=== PATIENT | female | born 1935 | race Caucasian/White ===

== ENCOUNTER → 2016-03-23 | Outpatient (CLI) | payer MEDICARE, OTHER | LOC: RAD 08:21 | PROVIDERS: ATTEND Nurse Practitioner Adult Health | DX: R91.8 Other nonspecific abnormal finding of lung field (principal) | CPT/HCPCS: 71250 ==

== ENCOUNTER → 2017-05-03 | Outpatient (CLI) | payer MEDICARE, OTHER ==
--- NOTE | 2017-05-03 12:04 | RADIOLOGY REPORT (SQ) ---
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 Selected additional c olor/power Doppler images recorded. All images stored to PACS. LIMITATIONS: None. FINDINGS: Overall thyroid gland is normal in size. Right lobe thyroid 4.7 x 3.1 x 2.6 cm in size. There is a solid nodule in the right lower pole thyro id with internal color flow. This nodule measures 3.6 x 2.7 cm in size. Elsewhere in the right lobe thyroid there are multiple thyroid cysts, the largest is 8 mm in size in the posterior right mid gland. Left lobe thyroid 4.1 x 1.6 x 1.4 cm in size with multiple small cysts less than 1 cm in size. There is the partially calcified nodule in the isthmus, 7 mm in diameter. IMPRESSION: Solid nodule in the right lower pole thyroid and midline thyroid isthmus. Otherwise, multiple bilateral thyroid cysts are present. TECHNICAL DOCUMENTATION: JOB ID: [id number] [employer]- All Rights Reserved Reading location - IP/workstation name: [email or web address]
--- NOTE | 2017-05-03 16:40 | RADIOLOGY REPORT (SQ) ---
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 TECHNIQUE: CT scan performed of the chest without intravenous contrast. Images reviewed with lung, soft tissue and bone windows. Reconstructed coronal and sagittal MPR images reviewed. All images st ored on PACS. All CT scanners at this facility use dose modulation, iterative reconstruction, and/or weight based d osing when appropriate to reduce radiation dose to as low as reasonably achievable (ALARA). [facility]: Dose Right [facility]: CareDose [facility]: Dose Right [facility]: Teradose 4D [facility]: Smart [employer] (powering [employer]) RADIATION DOSE: CT Rad equipment meets quality standard of care and radiation dose reduction techniq ues were employed. CTDIvol: 8.6 mGy. DLP: 335 mGy-cm. mGy. LIMITATIONS: No technical limitations. FINDINGS: LUNGS AND PLEURA: Multiple previously documented pulmonary nodules are unchanged in size a nd appearance. Majority of these nodules measure between 2 and 4 mm. The largest in the right lung is unchanged, measures 7.8 mm (axial series 4, image 43) and is associated with linear scarring. Lar gest in the left lung, adjacent to the cardiac border, measures 6.4 mm, essentially unchanged (axial series 4, image 61). No new nodules or masses. No focal infiltrates. No pleural effusion, pleural thickening, or pleural calcification. HILAR AND MEDIASTINAL STRUCTURES: No identified masses or abnormal nodes. No obvious aneurysm. HEART AND VASCULAR STRUCTURES: No aneurysm. No pericardial effusion. UPPER ABDOMEN: No significant findings. Limited exam. THYROID AND OTHER SOFT TISSUES: Asymmetric enlargement of the right lobe of the thyroid, unchanged. No adenopathy. BONES: No significant finding. HARDWARE: None in the chest. OTHER: No other significant findings. IMPRESSION: STABLE CT OF THE CHEST. MULTIPLE PULMONARY NODULES ARE STABLE AND UNCHANGED. NO PROGRE SSION AND NO NEW NODULES OR MASSES. COMMENT: FLEISCHNER CRITERIA FOR FOLLOW-UP OF PULMONARY NODULES Incidentally detected new nodules in persons 35 or older. HIGH RISK: History of smoking or other known risk factors. 6-8mm multiple solid nodules: LOW RISK: CT 3-6 mo; then consider CT 18-24 mo. HIGH RISK: CT 3-6 mo; t hen CT 18-24 mo. TECHNICAL DOCUMENTATION: JOB ID: [id number] Quality ID # [id number]: Final reports with documentation of one or more dose reduction techniques (e.g., Au tomated exposure control, adjustment of the mA and/or kV according to patient size, use of iterative reconstruction technique) 2010 [employer]- All Rights Reserved Reading location - IP/workstation name: [email or web address]
== END ==
LOC: RAD 10:18
PROVIDERS: ATTEND Physician Assistant
DX: E01.0 Iodine-deficiency related diffuse (endemic) goiter (principal); R91.8 Other nonspecific abnormal finding of lung field
CPT/HCPCS: 71250; 76536

== ENCOUNTER → 2017-05-27 | Day surgery (SDC) | payer MEDICARE, OTHER ==
[~2017-05-27] MED LIST: LIDOCAINE 1% INJ-PF (10 MG/ML) 30 ML SDV ONE
--- NOTE | 2017-05-27 17:41 | RADIOLOGY REPORT (SQ) ---
EXAM DESCRIPTION: U/S BIOPSY THYROID COMPLETED DATE/TIME: 05/27/2017 4:26 pm REASON FOR STUDY: RIGHT THYROID NODULE (E04.2) E04.2 NONTOXIC MULTINODULAR GOITER COMPARISON: None. TECHNIQUE: The procedure was discussed with the patient and written informed consent obtained. A ti meout was performed to confirm the procedure and patient's identity. The skin of the neck was preppe d and draped in sterile fashion and 1 mL of 1% lidocaine administered for local anesthesia. Under so nographic guidance, fine needle aspiration biopsy was performed of the mass in the right lobe of the thyroid. Three separate aspirations were performed. Hemostasis was obtained with direct manual compression. There were no immediate complications. LIMITATIONS: None. FINDINGS: PATHOLOGY: Pending. IMPRESSION: ULTRASOUND-GUIDED BIOPSY PERFORMED OF A MASS IN THE RIGHT LOBE LOBE OF THE THYROID. PAT OLGAGY PENDING AT THE TIME OF DICTATION. COMMENT: Patient medication list reviewed: Yes- Quality ID# [id number]:Eligible professional attests to doc umenting in the medical record they obtained, updated, or reviewed the patient's current medications. TECHNICAL DOCUMENTATION: JOB ID: [id number] [employer]- All Rights Reserved Reading location - IP/workstation name: [facility]-[email or web address]
== END ==
LOC: RAD 13:58
PROVIDERS: ATTEND Otolaryngology
DX: E04.2 Nontoxic multinodular goiter (principal)
CPT/HCPCS: 88173 ×2; 60100; J3490

== ENCOUNTER → 2017-07-10 | Day surgery (SDC) | payer MEDICARE, OTHER ==
--- NOTE | 2017-07-10 17:57 | RADIOLOGY REPORT (SQ) ---
EXAM DESCRIPTION: U/S BIOPSY THYROID COMPLETED DATE/TIME: 07/10/2017 3:02 pm REASON FOR STUDY: GOITER (E04.2) E04.2 NONTOXIC MULTINODULAR GOITER COMPARISON: Thyroid biopsy 05/27/2017 Thyroid ultrasound 05/03/2017 CT chest 05/03/2017 TECHNIQUE: The procedure was discussed with the patient and written informed consent obtained. A ti meout was performed to confirm the procedure and patient's identity. The skin of the neck was preppe d and draped in sterile fashion and 0.5 mL of 1% lidocaine administered for local anesthesia. Under sonographic guidance, fine needle aspiration biopsy was performed of the 7 mm mass in the isthmus of the thyroid. 5 separate aspirations were performed. Specimens were received by Yue from cytology. Hemostasis was obtained with direct manual compression. There were no immediate complications. LIMITATIONS: None. FINDINGS: PATHOLOGY: Pending. IMPRESSION: ULTRASOUND-GUIDED BIOPSY PERFORMED OF A 7 mm NODULE IN THE ISTHMUS OF THE THYROID. PATH OLOGY PENDING AT THE TIME OF DICTATION. COMMENT: Patient medication list reviewed: Yes- Quality ID# [id number]:Eligible professional attests to doc umenting in the medical record they obtained, updated, or reviewed the patient's current medications. TECHNICAL DOCUMENTATION: JOB ID: [id number] [employer]- All Rights Reserved Reading location - IP/workstation name: [email or web address]
== END ==
LOC: RAD 13:40
PROVIDERS: ATTEND Otolaryngology
DX: E04.2 Nontoxic multinodular goiter (principal)
CPT/HCPCS: 88173 ×2; 60100; J3490

== ENCOUNTER → 2017-12-10 | Outpatient (CLI) | payer MEDICARE, OTHER ==
[2017-12-11 12:38] LABS: ANTICHROMATIN AB <0.2 AI (0.0-0.9); CENTROMERE B AB <0.2 AI (0.0-0.9); JO-1 ANTIBODY (ANACOMP) <0.2 AI (0.0-0.9); SJOGREN'S ANTI-SS-B AB <0.2 AI (0.0-0.9); SJOGREN'S SS-A ANTIBODY <0.2 AI (0.0-0.9)
[2017-12-11 12:40] LABS: DNA DOUBLE STRAND ANTIBODY ANA <1 IU/mL (0-9)
[2017-12-11 17:37] LABS: CYTOPLASMIC (C-ANCA) <1:20 titer (Neg:<1:20)
[2017-12-12 07:46] LABS: ATYPICAL PANCA <1:20 titer (Neg:<1:20); PERINUCLEAR (P-ANCA) <1:20 titer (Neg:<1:20)
== END ==
LOC: OD 09:49
PROVIDERS: ATTEND Physician Assistant
DX: R94.2 Abnormal results of pulmonary function studies (principal)
CPT/HCPCS: 36415; 86021; 86225; 86235; 86430

== ENCOUNTER 2018-01-24 13:56 | Emergency (ER) | payer MEDICARE, OTHER ==
--- NOTE | 2018-01-24 14:24 | ER Document Report ---
ED Medical Screen (RME) - General Chief Complaint: Fall Stated Complaint: FALL/LEFT SHOULDER PAIN Time Seen by Provider: 01/24/18 14:24 Notes: 82-year-old brought in by ambulance after fall at [employer]. Tripped over a parking bumper. Landed on left side. Hit her head. Has bleeding present on the left sikh. No LOC. Complaining of neck pain, head pain and left shoulder and arm pain. I have greeted and performed a rapid initial assessment of this patient. A comprehensive ED assessment and evaluation of the patient, analysis of test results and completion of the medical decision making process will be conducted by additional ED providers. TRAVEL OUTSIDE OF THE [place] IN LAST 30 DAYS: No - Related Data Allergies/Adverse Reactions: ibuprofen Allergy (Verified 01/24/18 13:57) rash iodine Allergy (Verified 01/24/18 13:57) rash Past Medical History - Past Medical History Cardiac Medical History: Reports: Hx Hypercholesterolemia, Hx Hypertension Denies: Hx Coronary Artery Disease, Hx Heart Attack Pulmonary Medical History: Denies: Hx Asthma, Hx Bronchitis, Hx COPD, Hx Pneumonia Neurological Medical History: Denies: Hx Cerebrovascular Accident, Hx Seizures GI Medical History: Reports: Hx Diverticulitis, Hx Colonoscopy Musculoskeltal Medical History: Reports Hx Arthritis Past Surgical History: Reports: Hx Hysterectomy, Hx Orthopedic Surgery - right shoulder and knee - Immunizations Hx Diphtheria, Pertussis, Tetanus Vaccination: Yes History of Influenza Vaccine for 12/2016 - 05/2017 Season: Yes Influenza Administration Date for 12/2016 - 05/2017 Season: 12/09/16 Physical Exam - Vital signs Vitals: Temp Pulse Resp BP Pulse Ox 97.4 F 72 24 H 93/59 L 97 01/24/18 14:10 01/24/18 14:10 01/24/18 14:10 01/24/18 14:10 01/24/18 14:10 Course - Vital Signs Vital signs: Temp Pulse Resp BP Pulse Ox 97.4 F 72 24 H 93/59 L 97 01/24/18 14:10 01/24/18 14:10 01/24/18 14:10 01/24/18 14:10 01/24/18 14:10 Doctor's Discharge - Discharge Referrals: MITCH CAVAZOS PA-C [Primary Care Provider] - Follow up as needed
[2018-01-24] MEDS ORDERED: FENTANYL CITRATE INJ/PF 100 MCG/2 ML AMPUL IV ONE ×2 (14:35→15:30)
[2018-01-24 15:04] LABS: ABSOLUTE BASOPHILS # (AUTO) 0.1 10^3/uL (0.0-0.2); ABSOLUTE EOSINOPHILS # (AUTO) 0.2 10^3/uL (0.0-0.6); ABSOLUTE LYMPHOCYTES (AUTO) 2.7 10^3/uL (0.5-4.7); ABSOLUTE MONOCYTES (AUTO) 0.9 10^3/uL (0.1-1.4); ABSOLUTE NEUT (AUTO) 5.6 10^3/uL (1.7-8.2); BASOPHILS % (AUTO) 0.6 % (0-2); HEMATOCRIT 41.4 % (36.0-47.0); HEMOGLOBIN 14.6 g/dL (12.0-15.5); LYMPHOCYTES % (AUTO) 28.7 % (13-45); MEAN CORPUSCULAR HEMOGLOBIN 32.8 pg (27.0-33.4); MEAN CORPUSCULAR HGB CONC 35.2 g/dL (32.0-36.0); MEAN CORPUSCULAR VOLUME 93 fl (80-97); MONOCYTES % (AUTO) 9.8 % (3-13); PLATELET COUNT 254 10^3/uL (150-450); RED BLOOD COUNT 4.45 10^6/uL (3.72-5.28); RED CELL DISTRIBUTION WIDTH 12.9 % (11.5-14.0); SEGMENTED NEUTROPHILS % (AUTO) 58.9 % (42-78); TOTAL CELLS COUNTED % (AUTO) 100 %; WHITE BLOOD COUNT 9.5 10^3/uL (4.0-10.5)
[2018-01-24 15:13] LABS: INTERNATIONAL RATION (INR) 0.96; PROTHROMBIN TIME 13.3 SEC (11.4-15.4)
[2018-01-24 15:14] LABS: PARTIAL THROMBOPLASTIN TIME 29.2 SEC (23.5-35.8)
[2018-01-24 15:19] LABS: ALANINE AMINOTRANSFERASE 34 U/L (9-52); ALKALINE PHOSPHATASE 59 U/L (38-126); ANION GAP 14 (5-19); ASPARTATE AMINO TRANSFERASE 42 U/L (14-36); BILIRUBIN,DIRECT 0.3 mg/dL (0.0-0.4); BILIRUBIN,TOTAL 0.7 mg/dL (0.2-1.3); BLOOD UREA NITROGEN 17 mg/dL (7-20); CARBON DIOXIDE 24 mmol/L (22-30); CHLORIDE 101 mmol/L (98-107); GLUCOSE 189 mg/dL (75-110); POTASSIUM 4.2 mmol/L (3.6-5.0); SODIUM 139.2 mmol/L (137-145); TOTAL PROTEIN 6.8 g/dL (6.3-8.2)
--- NOTE | 2018-01-24 15:23 | RADIOLOGY REPORT (SQ) ---
EXAM DESCRIPTION: CT HEAD WITHOUT COMPLETED DATE/TIME: 01/24/2018 3:05 pm REASON FOR STUDY: fall, pain, head injury COMPARISON: None. TECHNIQUE: Axial images acquired through the brain without intravenous contrast. Images reviewed wi th bone, brain and subdural windows. Additional sagittal and coronal reconstructions were generated. Images stored on PACS. All CT scanners at this facility use dose modulation, iterative reconstruction, and/or weight based d osing when appropriate to reduce radiation dose to as low as reasonably achievable (ALARA). [facility]: Dose Right [facility]: CareDose [facility]: Dose Right [facility]: Teradose 4D [facility]: [employer] RADIATION DOSE: CT Rad equipment meets quality standard of care and radiation dose reduction techniq ues were employed. CTDIvol: 53.2 mGy. DLP: 1044 mGy-cm. mGy. LIMITATIONS: None. FINDINGS: VENTRICLES: Normal size and contour. CEREBRUM: No masses. No hemorrhage. No midline shift. No evidence for acute infarction. Normal gra y/white matter differentiation. No areas of low density in the white matter. CEREBELLUM: No masses. No hemorrhage. No alteration of density. No evidence for acute infarction. EXTRAAXIAL SPACES: No fluid collections. No masses. ORBITS AND GLOBE: No intra- or extraconal masses. Normal contour of globe without masses. CALVARIUM: No fracture. PARANASAL SINUSES: No fluid or mucosal thickening. SOFT TISSUES: Left frontal scalp hematoma without underlying skull fracture or acute intracranial adrián nges OTHER: No other significant finding. IMPRESSION: Left frontal scalp hematoma without underlying skull fracture or acute intracranial spears ges EVIDENCE OF ACUTE STROKE: NO. COMMENT: Quality ID # 436: Final reports with documentation of one or more dose reduction techniques (e.g., Automated exposure control, adjustment of the mA and/or kV according to patient size, use of iterative reconstruction technique) TECHNICAL DOCUMENTATION: JOB ID: [id number] [employer]- All Rights Reserved Reading location - IP/workstation name: [email or web address]-[email or web address]
--- NOTE | 2018-01-24 15:27 | RADIOLOGY REPORT (SQ) ---
EXAM DESCRIPTION: CT CERVICAL SPINE WITHOUT COMPLETED DATE/TIME: 01/24/2018 3:05 pm REASON FOR STUDY: fall, pain fall, injury, neck pain COMPARISON: None. TECHNIQUE: Axial images acquired through the cervical spine without intravenous contrast. Images re viewed with lung, soft tissue and bone windows. Reconstructed coronal and sagittal MPR images review ed. Images stored on PACS. All CT scanners at this facility use dose modulation, iterative reconstruction, and/or weight based d osing when appropriate to reduce radiation dose to as low as reasonably achievable (ALARA). [facility]: Dose Right [facility]: CareDose [facility]: Dose Right [facility]: Teradose 4D [facility]: [employer] RADIATION DOSE: CT Rad equipment meets quality standard of care and radiation dose reduction techniq ues were employed. CTDIvol: 23.3 mGy. DLP: 442 mGy-cm. mGy. LIMITATIONS: None. FINDINGS: ALIGNMENT: Straightening of cervical lordosis MINERALIZATION: Normal. VERTEBRAL BODIES: No fractures or dislocation. DISCS: Craniocervical junction, C1-2, C2-3 are unremarkable. At C3-4, mild diffuse posterior disc bulging is present without central stenosis. Mild bilateral for aminal narrowing. At C4-5, mild central canal narrowing results from broad diffuse disc bulge and bony spurring. High- grade right, moderate left foraminal narrowing. At C5-6, mild central canal stenosis results from broad diffuse posterior disc bulge and bony spurrin g. High-grade bilateral foraminal narrowing is present. At C6-7, mild posterior disc bulging is present without central stenosis. Mild right, moderate left foraminal narrowing is present. C7-T1 is unremarkable. FACETS, LATERAL MASSES, POSTERIOR ELEMENTS: No fractures. No dislocation. No acute findings. HARDWARE: None in the spine. VISUALIZED RIBS: No fractures. LUNG APICES AND SOFT TISSUES: No significant or acute findings. OTHER: No other significant finding. IMPRESSION: Multilevel degenerative disc changes. No acute fracture or malalignment. TECHNICAL DOCUMENTATION: JOB ID: [id number] Quality ID # [id number]: Final reports with documentation of one or more dose reduction techniques (e.g., Au tomated exposure control, adjustment of the mA and/or kV according to patient size, use of iterative reconstruction technique) 2010 [employer]- All Rights Reserved Reading location - IP/workstation name: [email or web address]
--- NOTE | 2018-01-24 15:30 | RADIOLOGY REPORT (SQ) ---
EXAM DESCRIPTION: SHOULDER LEFT 2 OR MORE VIEWS COMPLETED DATE/TIME: 01/24/2018 3:11 pm REASON FOR STUDY: fall, pain COMPARISON: None. NUMBER OF VIEWS: Three views. TECHNIQUE: Internal rotation, external rotation, and Y view images acquired of the left shoulder. LIMITATIONS: None. FINDINGS: MINERALIZATION: Normal. BONES: No acute fracture or dislocation. No worrisome bone lesions. JOINTS: Anterior glenohumeral joint dislocation. Acromioclavicular joint intact. VISUALIZED LUNGS AND RIBS: No pneumothorax. No rib fracture. SOFT TISSUES: No radiopaque foreign body. OTHER: No other significant finding. IMPRESSION: Anterior glenohumeral joint dislocation. No gross acute fracture. TECHNICAL DOCUMENTATION: JOB ID: [id number] [employer]- All Rights Reserved Reading location - IP/workstation name: [email or web address]
[2018-01-24] MEDS ORDERED: ETOMIDATE INJ/PF 20 MG/10 ML SDV IV PRN (15:57)
[2018-01-24] MEDS ORDERED: LIDOCAINE 1% INJ (10 MG/ML) 10 ML MDV INJ ONE ×2 (17:26→17:29)
[2018-01-24] MEDS ORDERED: LIDOCAINE 1%/EPINEPHRINE INJ 20 ML VIAL ONE (17:28)
[2018-01-24] MEDS ORDERED: LIDOCAINE 1%/EPINEPHRINE INJ 20 ML VIAL INJ ONE ×2 (17:30→17:31)
--- NOTE | 2018-01-24 17:58 | ER Document Report ---
ED Fall - General Chief Complaint: Fall Stated Complaint: FALL/LEFT SHOULDER PAIN Time Seen by Provider: 01/24/18 14:24 Mode of Arrival: Medic Information source: Patient, Emergency Med Personnel Cannot obtain history due to: Uncooperative TRAVEL OUTSIDE OF THE [place] IN LAST 30 DAYS: No - HPI Patient complains to provider of: Shoulder pain Occurred: Other - 82-year-old female that presents after tripping over a barrier at the store falling on her left side hitting her head and shoulder without any loss of consciousness. She denies any other pain at this time. Rest of history is limited secondary to this patient's pain level. - Related data Allergies/Adverse Reactions: ibuprofen Allergy (Verified 01/24/18 13:57) rash iodine Allergy (Verified 01/24/18 13:57) rash Past Medical History - General Information source: Patient - Social History Smoking Status: Unknown if Ever Smoked Family History: Reviewed & Not Pertinent Patient has suicidal ideation: No Patient has homicidal ideation: No - Past Medical History Cardiac Medical History: Reports: Hx Hypercholesterolemia, Hx Hypertension Denies: Hx Coronary Artery Disease, Hx Heart Attack Pulmonary Medical History: Denies: Hx Asthma, Hx Bronchitis, Hx COPD, Hx Pneumonia Neurological Medical History: Denies: Hx Cerebrovascular Accident, Hx Seizures Renal/ Medical History: Denies: Hx Peritoneal Dialysis GI Medical History: Reports: Hx Diverticulitis, Hx Colonoscopy Musculoskeletal Medical History: Reports Hx Arthritis Past Surgical History: Reports: Hx Hysterectomy, Hx Orthopedic Surgery - right shoulder and knee - Immunizations Hx Diphtheria, Pertussis, Tetanus Vaccination: Yes Hx Pneumococcal Vaccination: 12/09/12 Review of Systems - Review of Systems -: Yes All other systems reviewed and negative Physical Exam - Vital signs Vitals: Temp Pulse Resp BP Pulse Ox 97.4 F 72 24 H 93/59 L 97 01/24/18 14:10 01/24/18 14:10 01/24/18 14:10 01/24/18 14:10 01/24/18 14:10 - General General appearance: Alert, Anxious In distress: Moderate - HEENT Head: Other - Massive hematoma over the left forehead Eyes: Periorbital ecchymosis Conjunctiva: Injected Cornea: Normal Extraocular movements intact: Yes Eyelashes: Normal Pupils: PERRL - Respiratory Respiratory status: No respiratory distress Chest status: Nontender Breath sounds: Normal Chest palpation: Normal - Cardiovascular Rhythm: Regular Heart sounds: Normal auscultation Murmur: No - Abdominal Inspection: Normal Distension: No distension Tenderness: Nontender - Back Back: Normal - Extremities General upper extremity: Other - Left upper extremity is held in a flexed and internally rotated position General lower extremity: Normal inspection, Nontender, Normal strength, Normal temperature - Neurological Neuro grossly intact: Yes Cognition: Inattentive Orientation: AAOx4 [place] Coma Scale Eye Opening: Spontaneous [place] Coma Scale Verbal: Oriented [place] Coma Scale Motor: Obeys Commands [place] Coma Scale Total: 15 Speech: Normal Motor strength normal: RUE, LLE, RLE - Psychological Associated symptoms: Irritable Course - Re-evaluation Re-evalutation: 01/25/18 01:02 Here is an 82-year-old female who presents for evaluation after mechanical fall. Through triage she had x-rays ordered of the shoulder and scans of the head and neck. X-ray demonstrates that this patient does have a dislocated shoulder at this time. She also has a massive hematoma over the left forehead. Attempted aggressive analgesia for this patient with fentanyl and a conservative attempt at manual reduction of the left shoulder dislocation, because of her profound pain she was unable to tolerate this. The patient's pain level did preclude much of history taking as she was screaming in agony. She did have markedly elevated blood pressure likely as a result thereof. Because of the concern for her ongoing pain and her desire to "just knocked me out" made determination to proceed with conscious sedation for her shoulder dislocation. Because of her elevated blood pressure made determination to utilize etomidate. Utilize 0.3 mg/kg of her ideal body weight. Following administration of the etomidate for this patient she was able to relax appropriately with 2 manipulation attempts over a handful of minutes her left shoulder was successfully reduced. Her shoulder was placed into a sling to help assist her moving forward. She is continued to be monitored throughout the sedation, while attempting to address this the wound on her forehead began to bleed copiously. Because the blood clot which had formed underneath the skin there was no ability to apply direct compression to bleeding tissue determination was made for hematoma evacuation. Removed the clot which was precluding wound closure, 2 Prolene stitches were placed as well as epinephrine buffered lidocaine and hemostasis was achieved. After monitoring the patient did return to her neurologic baseline and she stated that she felt much better. She was able to relay a normal history thereafter. An x-ray was obtained which confirmed the reduction of the left shoulder. For approximately 2 hours of time attempts were made to contact this patient's family including her son whom she lives with as well as her 2 daughters on approximately the fifth attempt to contact her daughter we were able to reach her at which time she said she would be willing to come and pick her mother up and get her home to help continue caring for her. This patient will be given a referral orthopedist moving forward encouragement to utilize conservative wound treatment and stitch removal. At the time of discharge the patient was ambulatory without assistance and well- appearing, she had no complaints. - Vital Signs Vital signs: Temp Pulse Resp BP Pulse Ox 97.4 F 102 H 21 H 144/76 H 97 01/24/18 14:10 01/24/18 16:54 01/24/18 18:51 01/24/18 18:51 01/24/18 18:51 - Laboratory Result Diagrams: 01/24/18 14:00 01/24/18 14:00 Laboratory results interpreted by me: 01/24/18 14:00 Glucose 189 H AST 42 H Procedures - Conscious Sedation Conscious sedation Consent obtained: Yes Prior complications: Procedural sedation ASA Classification: Choose one classification Pt with a mild systemic disease.: P2. - ASA Classification. Airway Evaluation: Abnormal 3-3-2 rule, Loose teeth Mallampati Classification: Class 2 Used during procedure: Suction available, IV access obtained, Pulse ox on pt., monitoring specialist on pt. Medications administered: Etomidate Reversal agents: None I personally performed/intraservice time: Sedation, Procedure, 31-45 min Complications: No - Joint Reduction/Fracture Care Left Shoulder Consent obtained: Yes Conscious sedation: Yes Pre-procedure NV exam: Yes Post-procedure NV exam: Yes Post-reduction x-ray: Joint reduced Reduction attempts: 2 Complications: No - Laceration/Wound Repair Left Face Wound length (cm): 2 Wound's Depth, Shape: Flap Laceration pre-procedure: Sterile PPE donned Anesthetic type: 1% Lidocaine w/epi Volume Anesthetic (mLs): 10 Wound explored: Clean Irrigated w/ Saline (mLs): 1,000 Wound Debrided: Minimal Wound Repaired With: Sutures Suture Size/Type: 3:0, Prolene Number of Sutures: 2 Layer Closure?: No Post-procedure wound care: Other Complications: No Discharge - Discharge Clinical Impression: Hematoma Shoulder pain Qualifiers: Chronicity: acute Laterality: left Qualified Code(s): M25.512 - Pain in left shoulder Shoulder dislocation Qualifiers: Encounter type: initial encounter Laterality: left Qualified Code(s): S43.005A - Unspecified dislocation of left shoulder joint, initial encounter Fall Qualifiers: Encounter type: initial encounter Qualified Code(s): W19.XXXA - Unspecified fall, initial encounter Contusion Qualifiers: Encounter type: initial encounter Contusion area: head Contusion of head detail : scalp Qualified Code(s): S00.03XA - Contusion of scalp, initial encounter Condition: Stable Disposition: HOME, SELF-CARE Instructions: Shoulder Dislocation ([facility]), Sling as Treatment (REPLACED BY [facility]) Additional Instructions: Your seen today in the emergency department after your fall. You had a dislocated shoulder as well as a large cut on your scalp. Your shoulder was put back in place and now you have a sling. The wound on your head was stitched closed. The stitches need to be removed in 7 days. You should return to the emergency room in case of any worsening confusion, dizziness, numbness or weakness. Otherwise scheduled appointment with the orthopedist provided to you in the coming week. Forms: Elevated Blood Pressure Referrals: MITCH CAVAZOS PA-C [ALLIED HEALTH PROFESSIONAL] - Follow up as needed ANNI GRAHAM DO [ACTIVE STAFF] - Follow up as needed
--- NOTE | 2018-01-24 18:16 | RADIOLOGY REPORT (SQ) ---
EXAM DESCRIPTION: SHOULDER LEFT 1 VIEW COMPLETED DATE/TIME: 01/24/2018 6:08 pm REASON FOR STUDY: post reduction COMPARISON: None. NUMBER OF VIEWS: One view. TECHNIQUE: AP images acquired of the left shoulder. LIMITATIONS: None. FINDINGS: MINERALIZATION: Normal. BONES: Reduction of the previously noted dislocation. JOINTS: No dislocation. VISUALIZED LUNGS AND RIBS: No pneumothorax. No rib fracture. SOFT TISSUES: No radiopaque foreign body. OTHER: No other significant finding. IMPRESSION: Reduction of the previously noted dislocation. TECHNICAL DOCUMENTATION: JOB ID: [id number] [employer]- All Rights Reserved Reading location - IP/workstation name: [email or web address]
[2018-01-24 18:56] VITALS: BP 144/76
== END 2018-01-24 20:43 | disposition home or self-care (01) ==
LOC: ER 13:56
DX: S43.015A Anterior dislocation of left humerus, initial encounter (principal); S01.81XA Laceration without foreign body of other part of head, initial encounter; M25.512 Pain in left shoulder; W01.0XXA Fall on same level from slipping, tripping and stumbling without subsequent striking against object, initial encounter; Y92.512 Supermarket, store or market as the place of occurrence of the external cause; I10 Essential (primary) hypertension; Z88.6 Allergy status to analgesic agent
CPT/HCPCS: 99284; 99152; 36415; 85025; 85610; 85730; 80053; 73020; 73030; 70450; 72125; 23655; 12011; L3650; J3010; J3490 ×2

== ENCOUNTER 2018-02-05 08:51 | Emergency (ER) | payer MEDICARE, OTHER ==
[2018-02-05] MEDS ORDERED: ACETAMINOPHEN 325 MG TABLET PO ONE (09:14)
--- NOTE | 2018-02-05 09:18 | ER Document Report ---
ED General - General Chief Complaint: Shoulder Pain Stated Complaint: SHOULDER PAIN Time Seen by Provider: 02/05/18 09:13 TRAVEL OUTSIDE OF THE [place] IN LAST 30 DAYS: No - HPI Notes: Patient is a 82-year-old female that presents to the emergency department for chief complaint of left shoulder pain. Patient states 2 weeks ago she had a fall that resulted in a dislocation of her left shoulder. She has been in a sling and swath since. This morning she took off her sling to get dressed and felt like she twisted her left shoulder. She denies any numbness or tingling down her left arm. She states there is pain in the left shoulder that was previously not present. The pain is sharp and nonradiating. It is worse when she moves her left arm. She has not taken any [id number] medication for her pain, chest pain, nausea, vomiting, numbness and weakness. The pain is improved when she is holding still. She denies any difficulty breathing. She has an appointment with Dr. De Leon, orthopedics in 2 days. She also states she is due to get the stitches in her head taken out today. She denies any issues with her head laceration including bleeding or drainage. Past Medical History: Reviewed in chart Past Surgical History: Reviewed in chart Social History: Denies drugs alcohol and tobacco Family History: Reviewed and noncontributory for presenting illness Allergies: Reviewed, see documented allergy list. REVIEW OF SYSTEMS: CONSTITUTIONAL : No fever No chills No diaphoresis No recent illness EENT: No vision changes No congestion No sore throat CARDIOVASCULAR: No chest pain No palpitations RESPIRATORY: No shortness of breath No cough No difficulty breathing GASTROINTESTINAL: No abdominal pain No nausea No vomiting No diarrhea GENITOURINARY: No dysuria No hematuria No difficulty urinating MUSCULOSKELETAL: No back pain No leg pain No arm pain SKIN: No rashes No lesions LYMPHATIC: No swollen, enlarged glands. NEUROLOGICAL: No lightheadedness No headache No weakness No paresthesias PSYCHIATRIC: No anxiety No depression PHYSICAL EXAMINATION: Vital signs reviewed, nursing noted reviewed. GENERAL: Well-appearing, well-nourished and in no acute distress. HEAD: Left forehead laceration with [address]. No surrounding erythema or bleeding normocephalic. EYES: Eyes appear normal, extraocular movements intact, sclera anicteric, conjunctiva are normal. ENT: nares patent, oropharynx clear without exudates. Moist mucous membranes. Left facial ecchymosis with no facial bone tenderness NECK: Normal range of motion, supple without lymphadenopathy LUNGS: Breath sounds clear to auscultation bilaterally and equal. No wheezes rales or rhonchi. HEART: Regular rate and rhythm without murmurs ABDOMEN: Soft, nontender, normoactive bowel sounds. No rebound, guarding, or rigidity. No masses appreciated. EXTREMITIES: Anterior left shoulder tenderness. No joint deformity. Sling and swath in place. No pitting or edema. NEUROLOGICAL: No focal neurological deficits. Moves all extremities spontaneously Motor and sensory grossly intact on exam. PSYCH: Normal mood, normal affect. SKIN: Warm, Dry, normal turgor. Left forehead laceration with stitches in place - Related Data Allergies/Adverse Reactions: ibuprofen Allergy (Verified 01/24/18 13:57) rash iodine Allergy (Verified 01/24/18 13:57) rash Past Medical History - Social History Smoking Status: Never Smoker Family History: Reviewed & Not Pertinent - Past Medical History Cardiac Medical History: Reports: Hx Hypercholesterolemia, Hx Hypertension Denies: Hx Coronary Artery Disease, Hx Heart Attack Pulmonary Medical History: Denies: Hx Asthma, Hx Bronchitis, Hx COPD, Hx Pneumonia Neurological Medical History: Denies: Hx Cerebrovascular Accident, Hx Seizures Renal/ Medical History: Denies: Hx Peritoneal Dialysis GI Medical History: Reports: Hx Diverticulitis, Hx Colonoscopy Musculoskeletal Medical History: Reports Hx Arthritis Past Surgical History: Reports: Hx Hysterectomy, Hx Orthopedic Surgery - right shoulder and knee - Immunizations Hx Diphtheria, Pertussis, Tetanus Vaccination: Yes Hx Pneumococcal Vaccination: 12/09/12 Physical Exam - Vital signs Vitals: Temp Pulse Resp BP Pulse Ox 97.7 F 78 18 126/57 H 96 02/05/18 09:05 02/05/18 09:05 02/05/18 09:05 02/05/18 09:05 02/05/18 09:05 Course - Re-evaluation Re-evalutation: 02/05/18 09:16 Vitals reviewed. Nursing notes reviewed. Patient has no focal neurologic deficits. She is in a sling and swath on the left arm. I do not appreciate any bony deformity. She has no direct trauma to her left arm. X-ray will be obtained to evaluate for new subluxation or dislocation. Patient sutures were removed. She was given Tylenol for pain. 02/05/18 11:00 X-ray of the left shoulder shows no acute injury. Patient will be discharged home in stable condition. She will follow with orthopedics as previously scheduled. She will continue wearing her sling and swath. - Vital Signs Vital signs: Temp Pulse Resp BP Pulse Ox 97.7 F 78 18 126/57 H 96 02/05/18 09:05 02/05/18 09:05 02/05/18 09:05 02/05/18 09:05 02/05/18 09:05 Procedures - Additional Procedures sut Time performed: :17 Notes: 02/05/18 09:17 2 simple interrupted stitches removed from left forehead laceration. Laceration is well-healed Discharge - Discharge Clinical Impression: Visit for suture removal Left shoulder pain Qualifiers: Chronicity: acute Qualified Code(s): M25.512 - Pain in left shoulder Condition: Stable Disposition: HOME, SELF-CARE Instructions: Shoulder Injury ([facility]) Additional Instructions: Please return to the emergency department if you have any worsening, or concern of your symptoms. Please return to the emergency department if you develop chest pain, difficulty breathing, severe abdominal pain, or ongoing vomiting. Please follow-up with your primary care physician in 2-3 days and any other recommended physicians. If prescribed, take all medications as directed. If you have any questions or concerns do not hesitate to return the emergency department for evaluation. Follow-up with your orthopedic surgeon as already scheduled. Wear the sling and swath until your appointment with orthopedics Prescriptions: Hydrocodone/Acetaminophen [Holly 5-325 mg Tablet] 1 tab PO Q6 #10 tablet Referrals: ANDREAS ROQUE MD [Primary Care Provider] - Follow up as needed
--- NOTE | 2018-02-05 10:43 | RADIOLOGY REPORT (SQ) ---
EXAM DESCRIPTION: SHOULDER LEFT 2 OR MORE VIEWS COMPLETED DATE/TIME: 02/05/2018 10:26 am REASON FOR STUDY: shoulder pain COMPARISON: Films from earlier this month. NUMBER OF VIEWS: Three views left shoulder. LIMITATIONS: None. FINDINGS: Osteopenic. No dislocation or shoulder separation evident. No displaced fracture. OTHER: No other significant finding. IMPRESSION: No fracture or dislocation evident on today's study. TECHNICAL DOCUMENTATION: JOB ID: [id number] Reading location - IP/workstation name: [email or web address]
[2018-02-05 11:38] VITALS: BP 117/62
== END 2018-02-05 11:37 | disposition home or self-care (01) ==
LOC: ER 08:51
DX: S43.005D Unspecified dislocation of left shoulder joint, subsequent encounter (principal); S01.81XD Laceration without foreign body of other part of head, subsequent encounter; W19.XXXD Unspecified fall, subsequent encounter; M25.512 Pain in left shoulder; Z88.6 Allergy status to analgesic agent; I10 Essential (primary) hypertension
CPT/HCPCS: 99284; 73030; A9270

== ENCOUNTER → 2018-02-14 | Outpatient (CLI) | payer MEDICARE, OTHER ==
--- NOTE | 2018-02-14 11:23 | RADIOLOGY REPORT (SQ) ---
EXAM DESCRIPTION: MRI LT UPPER JOINT WITHOUT COMPLETED DATE/TIME: 02/14/2018 10:46 am REASON FOR STUDY: NONDISP FX OF GREATER TUBEROSITY OF LEFT HUMERUS, INIT (S42.255A) S42.255A NONDIS P FX OF GREATER TUBEROSITY OF LEFT HUMERUS, I COMPARISON: Plain radiographs 02/05/2018 TECHNIQUE: Left shoulder images acquired and stored on PACS. Multiplanar imaging to include fat sens itive sequences such as T1, water sensitive sequences such as FST2/STIR, cartilage sensitive sequence s such as FSPD/gradient-echo sequences. LIMITATIONS: None. FINDINGS: BONE MARROW AND CORTEX: No worrisome bone lesions or marrow replacement. No occult fractur es. JOINT OR BURSAL EFFUSION: Intra and extra-articular effusion. GLENO-HUMERAL ARTICULATION: Superior migration of the humeral head with respect to the glenoid. ACROMION AND AC JOINT: Type 2 acromion. AC joint arthropathy with hypertrophic changes. ROTATOR CUFF AND INTERVAL: Full-thickness complete tear of the supraspinatus extending to the superio r infraspinatus and the superior subscapularis. Retraction to the mid humerus. Generalized cuff mus josy atrophy. No rotator interval tear. No rotator interval thickening to suggest adhesive capsulitis. LABRUM AND BICEPS LABRAL COMPLEX: Generalize tear of the superior labrum. There is medial dislocat ion of the intra-articular biceps as well as tendinopathy. Minimal biceps tendon seen distally in th e bicipital groove. REMAINDER OF LABRUM AND IGHL : No gross tear or paralabral cyst formation. Labral evaluation is less than optimal without joint distention. No thickening of IGHL to suggest adhesive capsulitis. PERIARTICULAR AND ADJACENT SOFT TISSUES: No masses or abnormal nodes. OTHER: No other significant finding. IMPRESSION: Massive rotator cuff tear with retraction and generalized muscle atrophy. Superior migr ation of the humeral head with respect to the glenoid. Biceps tendon is dislocated medially with extensive tendinopathy. Minimal biceps seen distally. Generalized tear of the superior labrum. Intra and extra-articular effusion. No occult fracture. TECHNICAL DOCUMENTATION: JOB ID: [id number] [employer]- All Rights Reserved Reading location - IP/workstation name: [email or web address] [id number]
== END ==
LOC: RAD 08:59
PROVIDERS: ATTEND Orthopaedic Surgery
DX: S42.255A Nondisplaced fracture of greater tuberosity of left humerus, initial encounter for closed fracture (principal); X58.XXXA Exposure to other specified factors, initial encounter

== ENCOUNTER → 2018-05-05 | Outpatient (CLI) | payer MEDICARE, OTHER ==
[2018-05-05 10:19] LABS: FREE T3 3.49 pg/mL (2.77-5.27); FREE T4 (FREE THYROXINE) 1.06 ng/dL (0.78-2.19)
[2018-05-05 10:32] LABS: THYROID STIMULATING HORMONE 2.79 uIU/mL (0.47-4.68)
--- NOTE | 2018-05-05 11:20 | RADIOLOGY REPORT (SQ) ---
EXAM DESCRIPTION: CT CHEST WITHOUT COMPLETED DATE/TIME: 05/05/2018 9:54 am REASON FOR STUDY: PULMONARY NODULES (R91.8) R91.8 OTHER NONSPECIFIC ABNORMAL FINDING OF LUNG FIELD C73 MALIGNANT NEOPLASM OF THYROID GLAND COMPARISON: 03/23/2016, 05/03/2017 TECHNIQUE: CT scan performed of the chest without intravenous contrast. Images reviewed with lung, soft tissue and bone windows. Reconstructed coronal and sagittal MPR images reviewed. All images st ored on PACS. All CT scanners at this facility use dose modulation, iterative reconstruction, and/or weight based d osing when appropriate to reduce radiation dose to as low as reasonably achievable (ALARA). [facility]: Dose Right [facility]: CareDose [facility]: Dose Right [facility]: Teradose 4D [facility]: [employer] SARL RADIATION DOSE: CT Rad equipment meets quality standard of care and radiation dose reduction techniq ues were employed. CTDIvol: 9.4 mGy. DLP: 357 mGy-cm. mGy. LIMITATIONS: No technical limitations. FINDINGS: LUNGS AND PLEURA: Scattered pulmonary nodules are unchanged since March 2016. Total garrett roximately 10 nodules. Largest is in the right upper lobe and measures 8 mm. No new nodules. No ef fusions. HILAR AND MEDIASTINAL STRUCTURES: No identified masses or abnormal nodes. No obvious aneurysm. HEART AND VASCULAR STRUCTURES: No aneurysm. No pericardial effusion. UPPER ABDOMEN: No significant findings. Limited exam. THYROID AND OTHER SOFT TISSUES: No masses. No adenopathy. BONES: Nothing acute. HARDWARE: None in the chest. OTHER: No other significant findings. IMPRESSION: Pulmonary nodules stable for 2 years. No new nodules. TECHNICAL DOCUMENTATION: JOB ID: [id number] Quality ID # [id number]: Final reports with documentation of one or more dose reduction techniques (e.g., Au tomated exposure control, adjustment of the mA and/or kV according to patient size, use of iterative reconstruction technique) 2010 [employer]- All Rights Reserved Reading location - IP/workstation name: [email or web address]
== END ==
LOC: RAD 09:36
PROVIDERS: ATTEND Internal Medicine Pulmonary Disease
DX: R91.8 Other nonspecific abnormal finding of lung field (principal); C73 Malignant neoplasm of thyroid gland
CPT/HCPCS: 36415; 71250; 84439; 84443; 84481

== ENCOUNTER → 2019-05-05 | Outpatient (CLI) | payer MEDICARE, OTHER ==
--- NOTE | 2019-05-05 17:11 | RADIOLOGY REPORT (SQ) ---
EXAM DESCRIPTION: CT CHEST WITHOUT COMPLETED DATE/TIME: 05/05/2019 8:22 am REASON FOR STUDY: LUNG NODULE, MULTIPLE R91.8 OTHER NONSPECIFIC ABNORMAL FINDING OF LUNG FIELD COMPARISON: 05/05/2018 and 05/03/2017. TECHNIQUE: CT scan performed of the chest without intravenous contrast. Images reviewed with lung, soft tissue and bone windows. Reconstructed coronal and sagittal MPR images reviewed. All images st ored on PACS. All CT scanners at this facility use dose modulation, iterative reconstruction, and/or weight based d osing when appropriate to reduce radiation dose to as low as reasonably achievable (ALARA). [facility]: Dose Right [facility]: CareDose [facility]: Dose Right [facility]: Teradose 4D [facility]: [employer] RADIATION DOSE: CT Rad equipment meets quality standard of care and radiation dose reduction techniq ues were employed. CTDIvol: 8.6 mGy. DLP: 319 mGy-cm. mGy. LIMITATIONS: No technical limitations. FINDINGS: LUNGS AND PLEURA: Multiple lung nodules, primarily in the right lung, are unchanged. The largest measures measures approximately 8 mm. No progression. No new nodules. No masses, infiltrat es, or pneumothorax. No pleural effusions or pleural calcifications. HILAR AND MEDIASTINAL STRUCTURES: No identified masses or abnormal nodes. No obvious aneurysm. HEART AND VASCULAR STRUCTURES: No aneurysm. No pericardial effusion. UPPER ABDOMEN: No significant findings. Limited exam. THYROID AND OTHER SOFT TISSUES: No masses. No adenopathy. BONES: No significant finding. HARDWARE: None in the chest. OTHER: No other significant findings. IMPRESSION: STABLE NONCONTRAST CT OF THE CHEST. MULTIPLE PULMONARY NODULES ARE UNCHANGED. NO PROGR ESSION OR NEW FINDINGS. TECHNICAL DOCUMENTATION: JOB ID: [id number] Quality ID # [id number]: Final reports with documentation of one or more dose reduction techniques (e.g., Au tomated exposure control, adjustment of the mA and/or kV according to patient size, use of iterative reconstruction technique) 2010 [employer]- All Rights Reserved Reading location - IP/workstation name: [email or web address]
== END ==
LOC: RAD 08:12
PROVIDERS: ATTEND Registered Nurse
DX: R91.8 Other nonspecific abnormal finding of lung field (principal)
CPT/HCPCS: 71250